=== PATIENT | female | born 1955 | race Caucasian/White ===

== ENCOUNTER 2020-05-03 11:18 | Emergency (ER) | payer BC ==
--- NOTE | 2020-05-03 12:57 | ER Document Report ---
ED Medical Screen (RME) - General Chief Complaint: Medical Complaint Stated Complaint: NECK PAIN Time Seen by Provider: 05/03/20 12:49 Primary Care Provider: ROB PANDEY MD [Primary Care Provider] - Follow up as needed Mode of Arrival: Ambulatory Information source: Patient Notes: 64-year-old female presents to ED for complaint of severe pain to the neck and head for 3 days. She states she has not been able to sleep for 3 days. She states she coughed and aspirated something yesterday and now she has a sore throat. She is has pressure in the head neck and upper back for the last 3 days. She states she did take Aleve this morning with no relief. She does have a history of COPD reflux. She is a former smoker states she does not drink smoke or use any illicit drugs. She states she is a former smoker. I have greeted and performed a rapid initial assessment of this patient. A comprehensive ED assessment and evaluation of the patient, analysis of test results and completion of medical decision making process will be conducted by an additional ED providers. TRAVEL OUTSIDE OF THE [place] IN LAST 30 DAYS: No - Related Data Allergies/Adverse Reactions: No Known Allergies Allergy (Verified 11/27/15 09:46) Past Medical History Pulmonary Medical History: Reports: Hx Asthma, Hx Bronchitis, Hx Pneumonia Past Surgical History: Reports: Hx Gynecologic Surgery - prolapsed uterus, Hx Orthopedic Surgery - right thumb - Immunizations Hx Diphtheria, Pertussis, Tetanus Vaccination: Yes Physical Exam - Vital signs Vitals: Temp Pulse Resp BP Pulse Ox 98.0 F 91 18 149/85 H 98 05/03/20 11:22 05/03/20 11:22 05/03/20 11:22 05/03/20 11:22 05/03/20 11:22 Course - Vital Signs Vital signs: Temp Pulse Resp BP Pulse Ox 98.0 F 91 18 149/85 H 98 05/03/20 11:22 05/03/20 11:22 05/03/20 11:22 05/03/20 11:22 05/03/20 11:22 Doctor's Discharge - Discharge Referrals: RBO PANDEY MD [Primary Care Provider] - Follow up as needed
[2020-05-03 13:56] LABS: ABSOLUTE BASOPHILS # (AUTO) 0.1 10^3/uL (0.0-0.2); ABSOLUTE EOSINOPHILS # (AUTO) 0.1 10^3/uL (0.0-0.6); ABSOLUTE LYMPHOCYTES (AUTO) 1.2 10^3/uL (0.5-4.7); ABSOLUTE MONOCYTES (AUTO) 0.4 10^3/uL (0.1-1.4); ABSOLUTE NEUT (AUTO) 5.2 10^3/uL (1.7-8.2); BASOPHILS % (AUTO) 0.8 % (0-2); HEMATOCRIT 38.3 % (36.0-47.0); HEMOGLOBIN 13.2 g/dL (12.0-15.5); LYMPHOCYTES % (AUTO) 17.5 % (13-45); MEAN CORPUSCULAR HEMOGLOBIN 30.9 pg (27.0-33.4); MEAN CORPUSCULAR HGB CONC 34.6 g/dL (32.0-36.0); MEAN CORPUSCULAR VOLUME 89 fl (80-97); MONOCYTES % (AUTO) 5.1 % (3-13); PLATELET COUNT 149 10^3/uL (150-450); RED BLOOD COUNT 4.29 10^6/uL (3.72-5.28); RED CELL DISTRIBUTION WIDTH 13.6 % (11.5-14.0); SEGMENTED NEUTROPHILS % (AUTO) 74.6 % (42-78); TOTAL CELLS COUNTED % (AUTO) 100 %
[2020-05-03 14:12] LABS: APPEARANCE,URINE CLEAR; BILIRUBIN,URINE NEGATIVE (NEGATIVE); COLOR,URINE YELLOW; GLUCOSE, URINE NEGATIVE (NEGATIVE); KETONES,URINE NEGATIVE (NEGATIVE); PROTEIN,URINE NEGATIVE (NEGATIVE); UROBILINOGEN,URINE NEGATIVE mg/dL (<2.0)
[2020-05-03 14:21] LABS: ALBUMIN 3.8 g/dL (3.5-5.0); ALKALINE PHOSPHATASE 82 U/L (38-126); ANION GAP 6 (5-19); ASPARTATE AMINO TRANSFERASE 25 U/L (14-36); BILIRUBIN,DIRECT 0.2 mg/dL (0.0-0.4); BILIRUBIN,TOTAL 0.8 mg/dL (0.2-1.3); BLOOD UREA NITROGEN 20 mg/dL (7-20); CALCIUM 9.3 mg/dL (8.4-10.2); CARBON DIOXIDE 29 mmol/L (22-30); CHLORIDE 105 mmol/L (98-107); GLUCOSE 105 mg/dL (75-110); POTASSIUM 4.4 mmol/L (3.6-5.0); TOTAL PROTEIN 6.4 g/dL (6.3-8.2)
--- NOTE | 2020-05-03 14:48 | RADIOLOGY REPORT (SQ) ---
EXAM DESCRIPTION: CT HEAD WITHOUT IMAGES COMPLETED DATE/TIME: 05/03/2020 2:28 pm REASON FOR STUDY: Severe pain head neck full-time neck COMPARISON: 11/27/2015 TECHNIQUE: Axial images acquired through the brain without intravenous contrast. Images reviewed wi th bone, brain and subdural windows. Additional sagittal and coronal reconstructions were generated. Images stored on PACS. All CT scanners at this facility use dose modulation, iterative reconstruction, and/or weight based d osing when appropriate to reduce radiation dose to as low as reasonably achievable (ALARA). [facility]: Dose Right [facility]: CareDose [facility]: Dose Right [facility]: Teradose 4D [facility]: Smart Tape TV RADIATION DOSE: CT Rad equipment meets quality standard of care and radiation dose reduction techniq ues were employed. CTDIvol: 48.8 mGy. DLP: 884 mGy-cm. mGy. LIMITATIONS: None. FINDINGS: VENTRICLES: Normal size and contour. CEREBRUM: No masses. No hemorrhage. No midline shift. No evidence for acute infarction. Normal gra y/white matter differentiation. No areas of low density in the white matter. CEREBELLUM: No masses. No hemorrhage. No alteration of density. No evidence for acute infarction. EXTRAAXIAL SPACES: No fluid collections. No masses. ORBITS AND GLOBE: No intra- or extraconal masses. Normal contour of globe without masses. CALVARIUM: No fracture. PARANASAL SINUSES: No fluid or mucosal thickening. SOFT TISSUES: No mass or hematoma. OTHER: No other significant finding. IMPRESSION: NO ACUTE INTRACRANIAL IMAGING FINDINGS. EVIDENCE OF ACUTE STROKE: NO. COMMENT: Quality ID # [id number]: Final reports with documentation of one or more dose reduction techniques (e.g., Automated exposure control, adjustment of the mA and/or kV according to patient size, use of iterative reconstruction technique) TECHNICAL DOCUMENTATION: JOB ID: [id number] 2010 [employer]- All Rights Reserved Reading location - IP/workstation name: [email or web address]
--- NOTE | 2020-05-03 14:51 | RADIOLOGY REPORT (SQ) ---
EXAM DESCRIPTION: CT CERVICAL SPINE WITHOUT IMAGES COMPLETED DATE/TIME: 05/03/2020 2:28 pm REASON FOR STUDY: Severe pain head neck full-time neck COMPARISON: 11/27/2015 TECHNIQUE: Axial images acquired through the cervical spine without intravenous contrast. Images re viewed with lung, soft tissue and bone windows. Reconstructed coronal and sagittal MPR images review ed. Images stored on PACS. All CT scanners at this facility use dose modulation, iterative reconstruction, and/or weight based d osing when appropriate to reduce radiation dose to as low as reasonably achievable (ALARA). [facility]: Dose Right [facility]: CareDose [facility]: Dose Right [facility]: Teradose 4D [facility]: [employer] RADIATION DOSE: CT Rad equipment meets quality standard of care and radiation dose reduction techniq ues were employed. CTDIvol: 20.6 mGy. DLP: 450 mGy-cm. mGy. LIMITATIONS: None. FINDINGS: ALIGNMENT: Straightening of the normal cervical lordosis, likely positional. MINERALIZATION: Normal. VERTEBRAL BODIES: No fractures or dislocation. DISCS: Multilevel disc height loss and endplate change greatest at C4-5 and C5-6. Posterior disc ost eophyte complex at those levels causing [id number] canal stenosis. FACETS, LATERAL MASSES, POSTERIOR ELEMENTS: No facet fracture dislocation. Mild degenerative change on the left greatest at C2-C5. HARDWARE: None in the spine. VISUALIZED RIBS: No fractures. LUNG APICES AND SOFT TISSUES: No significant or acute findings. 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 OTHER: No other significant finding. IMPRESSION: Mild multilevel degenerative change without evidence of acute bony abnormality of the ce rvical spine. TECHNICAL DOCUMENTATION: JOB ID: [id number] Quality ID # [id number]: Final reports with documentation of one or more dose reduction techniques (e.g., Au tomated exposure control, adjustment of the mA and/or kV according to patient size, use of iterative reconstruction technique) 2010 [employer]- All Rights Reserved Reading location - IP/workstation name: [email or web address]
--- NOTE | 2020-05-03 15:25 | RADIOLOGY REPORT (SQ) ---
EXAM DESCRIPTION: CHEST 2 VIEWS IMAGES COMPLETED DATE/TIME: 05/03/2020 3:16 pm REASON FOR STUDY: Cough after aspirating, COPD COMPARISON: 2013 EXAM PARAMETERS: NUMBER OF VIEWS: two views TECHNIQUE: Digital Frontal and Lateral radiographic views of the chest acquired. RADIATION DOSE: NA LIMITATIONS: none FINDINGS: LUNGS AND PLEURA: No opacities, masses or pneumothorax. No pleural effusion. MEDIASTINUM AND HILAR STRUCTURES: No masses or contour abnormalities. HEART AND VASCULAR STRUCTURES: Heart normal size. No evidence for failure. BONES: No acute findings. HARDWARE: None in the chest. OTHER: No other significant finding. IMPRESSION: NO ACUTE RADIOGRAPHIC FINDING IN THE CHEST. TECHNICAL DOCUMENTATION: JOB ID: [id number] 2010 [employer]- All Rights Reserved Reading location - IP/workstation name: [email or web address]
--- NOTE | 2020-05-03 19:28 | ER Document Report ---
ED Neck/Back Problem - General Chief Complaint: Medical Complaint Stated Complaint: NECK PAIN Time Seen by Provider: 05/03/20 12:49 Primary Care Provider: ROB PANDEY MD [Primary Care Provider] - Follow up as needed Mode of Arrival: Ambulatory Information source: Patient Notes: 05/03/20 12:53 - ED Nursing Note by VISHAL CONDON Num: [id number] : 1955 Patient Age: 64 Pt c/o nuchal ridgitidy x 3 day, posterior neck pain, headache and sore throat secondary to reflux. Pt has full ROM of both arms. No difficulty breathing. NAD Pt also reports losing voice this morning. Pt moaning and tearful in triage. ED Medical Screen (Kenn Notes) - General Chief Complaint: Medical Complaint Stated Complaint: NECK PAIN Time Seen by Provider: 05/03/20 12:49 Primary Care Provider: ROB PANDEY MD [Primary Care Provider] - Follow up as needed Mode of Arrival: Ambulatory Information source: Patient Notes: 64-year-old female presents to ED for complaint of severe pain to the neck and head for 3 days. She states she has not been able to sleep for 3 days. She states she coughed and aspirated something yesterday and now she has a sore throat. She is has pressure in the head neck and upper back for the last 3 days. She states she did take Aleve this morning with no relief. She does have a history of COPD reflux. She is a former smoker states she does not drink smoke or use any illicit drugs. She states she is a former smoker. MY NOTES 64-year-old female arrives with posterior neck pain headache sore throat secondary to reflux CTA head and neck are negative chest x-ray was negative as read by radiologists Dr. Liu and Dr. Giles. Patient is moaning in room and complaining of trapezial muscle pain pointing to her left greater than right and dorsal neck pain. She denies any overuse during [place] she denies any sleeping problems she denies any new pillows or new beds or new couches. She denies any abuse at the house. She denies any fever chills or co ronavirus exposure. She reports the symptoms have been present for least 3 days. Pain scale is around 6 out of 10. Nonsteroidals have not helped her with pain. She does have a history of reflux. TRAVEL OUTSIDE OF THE [place] IN LAST 30 DAYS: No - Related Data Allergies/Adverse Reactions: No Known Allergies Allergy (Verified 11/27/15 09:46) Past Medical History - General Information source: Patient - Social History Smoking Status: Former Smoker Cigarette use (# per day): No Chew tobacco use (# tins/day): No Smoking Education Provided: No Frequency of alcohol use: None Drug Abuse: None Lives with: Family Family History: Reviewed & Not Pertinent Patient has suicidal ideation: No Patient has homicidal ideation: No Pulmonary Medical History: Reports: Hx Asthma, Hx Bronchitis, Hx COPD, Hx Pneumonia Past Surgical History: Reports: Hx Gynecologic Surgery - prolapsed uterus, Hx Orthopedic Surgery - right thumb - Immunizations Hx Diphtheria, Pertussis, Tetanus Vaccination: Yes Hx Pneumococcal Vaccination: 03/07/11 Review of Systems - Review of Systems Constitutional: See HPI, Weakness, Weight loss - No appetite. denies: Chills, Diaphoresis, Fever, Malaise, Weight gain, Recent illness EENT: See HPI, Throat pain Cardiovascular: No symptoms reported Respiratory: No symptoms reported Gastrointestinal: No symptoms reported Genitourinary: No symptoms reported Female Genitourinary: No symptoms reported Musculoskeletal: No symptoms reported Skin: No symptoms reported Hematologic/Lymphatic: No symptoms reported Neurological/Psychological: See HPI, Weakness, Headaches. denies: Confusion, Dementia, Depression, Anxiety, Hallucinations, Sensory change, Gait changes, Loss of power, Paralysis, Seizure, Lost consciousness, Speech impairment, Numbness, Suicidal ideation -: Yes All other systems reviewed and negative Physical Exam - Vital signs Vitals: Temp Pulse Resp BP Pulse Ox 98.0 F 91 18 149/85 H 98 05/03/20 11:22 05/03/20 11:22 05/03/20 11:22 05/03/20 11:22 05/03/20 11:22 Interpretation: Normal - General General appearance: Appears well, Alert - HEENT Head: Normocephalic, Atraumatic Eyes: Normal Pupils: PERRL Sinus: Normal Nasal: Normal Mouth/Lips: Normal Mucous membranes: Normal Pharynx: Normal Neck: Other - Tender dorsal neck on palpation and range of motion; no active lesions or zoster noted - Respiratory Respiratory status: No respiratory distress Chest status: Nontender Breath sounds: Normal Chest palpation: Normal - Cardiovascular Rhythm: Regular Heart sounds: Normal auscultation Murmur: No - Abdominal Inspection: Normal Distension: No distension Bowel sounds: Normal Tenderness: Nontender Organomegaly: No organomegaly - Rectal Hemorrhoids: Other - Deferred - Genitourinary Bimanuel exam: Other - Deferred - Back Back: Normal, Nontender - Extremities General upper extremity: Normal inspection, Nontender, Normal color, Normal ROM, Normal temperature General lower extremity: Normal inspection, Nontender, Normal color, Normal ROM, Normal temperature, Normal weight bearing. No: Asia's sign - Neurological Neuro grossly intact: Yes Cognition: Normal Orientation: AAOx4 [place] Coma Scale Eye Opening: Spontaneous [place] Coma Scale Verbal: Oriented [place] Coma Scale Motor: Obeys Commands [place] Coma Scale Total: 15 Speech: Normal Motor strength normal: LUE, RUE, LLE, RLE Sensory: Normal - Psychological Associated symptoms: Anxious - Skin Skin Temperature: Warm Skin Moisture: Dry Skin Color: Normal Course - Vital Signs Vital signs: Temp Pulse Resp BP Pulse Ox 98.0 F 91 18 149/85 H 98 05/03/20 11:22 05/03/20 11:22 05/03/20 11:22 05/03/20 11:22 05/03/20 11:22 - Laboratory Results Result Diagrams: 05/03/20 13:38 05/03/20 13:38 Laboratory Results Interpreted: 05/03/20 05/03/20 13:38 13:38 Plt Count 149 L Leukocyte Esterase Rfl TRACE H Critical Laboratory Results Reviewed: Yes Attending or Supervising Physician who Reviewed Labs: BAY PARDO JR - Radiology Results Critical Radiology Results Reviewed: Yes Attending or Supervising Physician who Reviewed Radiology: BAY PARDO JR Discharge - Discharge Clinical Impression: Neck pain, Trapezial muscle pain, History of esophageal reflux, no acute zoster Cephalgia Qualifiers: Headache type: unspecified Headache chronicity pattern: acute headache Intractability: not intractable Qualified Code(s): R51.9 - Headache, unspecified Disposition: HOME, SELF-CARE Additional Instructions: Follow-up with personal doctor ;return to ER as needed ;take medicines as directed; encourage fluids; let your doctor know if you have any zoster or shingles rash appear. Prescriptions: Sucralfate [Carafate 1 gm Tablet] 1 gm PO TID #40 tablet Chlorzoxazone [Parafon Forte Dsc 500 Mg Tablet] 500 mg PO BID PRN #20 tablet PRN Reason: Acyclovir [Zovirax 200 mg Capsule] 200 mg PO TID #21 capsule Forms: Return to Work Referrals: ROB PANDEY MD [Primary Care Provider] - Follow up as needed
[2020-05-03] MEDS ORDERED: KETOROLAC TROMETHAMINE INJ/PF 30 MG/1 ML SDV IM ONE (19:47)
[2020-05-03] MEDS ORDERED: DEXAMETHASONE SOD PHOS INJ 10 MG/1 ML VIAL IM ONE (19:48)
[2020-05-03] MEDS ORDERED: CEPHALEXIN 500 MG CAPSULE PO ONE (19:49)
[2020-05-03 20:28] VITALS: BP 138/86
== END 2020-05-03 20:26 | disposition home or self-care (01) ==
LOC: ER 11:18
DX: J02.9 Acute pharyngitis, unspecified (principal); R51.9 Headache, unspecified; M79.10 Myalgia, unspecified site; M54.2 Cervicalgia; R53.1 Weakness
CPT/HCPCS: 99285; 96372; 36415; 87086; 83690; 85025; 80053; 81001; 71046; 70450; 72125; U0003; J1885; J1100; C9803; 87635